=== PATIENT | female | born 1985 | race Two or more races ===

== ENCOUNTER 2019-03-30 08:30 | Emergency (ER) | payer SELFPAY ==
[~2019-03-30] VITALS: Ht 160 cm; Wt 79.4 kg
[2019-03-30] MEDS ORDERED: METHOCARBAMOL 500 MG TAB PO ONE (09:15)
[2019-03-30] MEDS ORDERED: KETOROLAC TROMETH 60MG/2ML VIAL IM ONE (09:15)
[2019-03-30 10:34] VITALS: BP 114/66
== END 2019-03-30 10:51 | disposition home or self-care (01) ==
LOC: ER 08:30 → EDBD 08:30 → ER 10:51
DX: M54.5 Low back pain (principal); V43.62XA Car passenger injured in collision with other type car in traffic accident, initial encounter; Y93.89 Activity, other specified; Y99.8 Other external cause status; Y92.410 Unspecified street and highway as the place of occurrence of the external cause
CPT/HCPCS: 72100; 96372; 99283; J1885